=== PATIENT | male | born 1990 | race Caucasian/White ===

== ENCOUNTER 2021-09-19 05:54 | Emergency (ER) | payer MEDICARE, MEDICAID, SELFPAY ==
--- NOTE | ~2021-09-19 | XR_ITS ---
EXAMINATION: XR KNEE RT 3V XR TIBIA FIBULA RT 2V XR ANKLE RT 2V CLINICAL INFORMATION: Pain COMPARISON: None. TECHNIQUE: AP, bilateral oblique lateral views of the right knee AP and lateral views of the right tib-fib AP, oblique and lateral views of the right ankle XR/XR tibia fibula RT 2V FINDINGS/IMPRESSION: Right knee: No acute fracture or dislocation. Joint spaces and articular surfaces are maintained. Joint effusion. Soft tissues unremarkable. Right tib-fib: No fractures. Soft tissues unremarkable. No radiopaque foreign body. Right ankle: No acute fracture or dislocation. Ankle mortise is congruent. Talar dome intact. No joint effusion. Soft tissues unremarkable.
--- NOTE | ~2021-09-19 | XR_ITS ---
EXAMINATION: XR KNEE RT 3V XR TIBIA FIBULA RT 2V XR ANKLE RT 2V CLINICAL INFORMATION: Pain COMPARISON: None. TECHNIQUE: AP, bilateral oblique lateral views of the right knee AP and lateral views of the right tib-fib AP, oblique and lateral views of the right ankle XR/XR knee RT 3V FINDINGS/IMPRESSION: Right knee: No acute fracture or dislocation. Joint spaces and articular surfaces are maintained. Joint effusion. Soft tissues unremarkable. Right tib-fib: No fractures. Soft tissues unremarkable. No radiopaque foreign body. Right ankle: No acute fracture or dislocation. Ankle mortise is congruent. Talar dome intact. No joint effusion. Soft tissues unremarkable.
--- NOTE | ~2021-09-19 | XR_ITS ---
EXAMINATION: XR KNEE RT 3V XR TIBIA FIBULA RT 2V XR ANKLE RT 2V CLINICAL INFORMATION: Pain COMPARISON: None. TECHNIQUE: AP, bilateral oblique lateral views of the right knee AP and lateral views of the right tib-fib AP, oblique and lateral views of the right ankle XR/XR ankle RT 2V FINDINGS/IMPRESSION: Right knee: No acute fracture or dislocation. Joint spaces and articular surfaces are maintained. Joint effusion. Soft tissues unremarkable. Right tib-fib: No fractures. Soft tissues unremarkable. No radiopaque foreign body. Right ankle: No acute fracture or dislocation. Ankle mortise is congruent. Talar dome intact. No joint effusion. Soft tissues unremarkable.
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
[2021-09-19 06:08] VITALS: BP 142/71; PULSE 53; RESP 16; TEMP 36.1; O2SAT 96; BMI 14.6
[2021-09-19 06:11] VITALS: BP 148/98; PULSE 57; O2SAT 98
== END 2021-09-19 07:18 | disposition home or self-care (01) ==
PROVIDERS: Emergency Provider Emergency Medicine
DX: M79.661 Pain in right lower leg (principal); M25.571 Pain in right ankle and joints of right foot
CPT/HCPCS: 73562; 73590; 73600; 99283

== ENCOUNTER 2022-04-08 22:29 | Emergency (ER) | payer MEDICARE, MEDICAID, SELFPAY ==
--- NOTE | ~2022-04-08 | US_ITS ---
EXAMINATION: US SCROTUM, LIMITED CLINICAL INFORMATION: Right testicular pain. COMPARISON: None TECHNIQUE: A limited sonogram of the scrotum was performed assessing santiago-scale appearance and color Doppler flow. Spectral Doppler analysis of the arterial and venous flow were performed in the testes bilaterally. FINDINGS: Initial images demonstrate lack of blood flow within the right testicle, but normal flow within the left testicle. Per report, the ER physician manually detorsed the right testicle. Subsequent images show normal arterial and venous waveforms within the right testicle. Small epididymal cyst present on the right. US/US scrotum IMPRESSION: Successful reduction in the right testicular torsion. Most recent images demonstrate blood flow within both testicles.
--- NOTE | ~2022-04-08 | US_ITS ---
EXAMINATION: US SCROTUM, LIMITED CLINICAL INFORMATION: Right testicular pain. COMPARISON: None TECHNIQUE: A limited sonogram of the scrotum was performed assessing santiago-scale appearance and color Doppler flow. Spectral Doppler analysis of the arterial and venous flow were performed in the testes bilaterally. FINDINGS: Initial images demonstrate lack of blood flow within the right testicle, but normal flow within the left testicle. Per report, the ER physician manually detorsed the right testicle. Subsequent images show normal arterial and venous waveforms within the right testicle. Small epididymal cyst present on the right. US/US scrotum doppler IMPRESSION: Successful reduction in the right testicular torsion. Most recent images demonstrate blood flow within both testicles.
[2022-04-08 22:38] VITALS: BP 160/100; PULSE 58; O2SAT 100; BMI 38.6
[2022-04-08 22:45] VITALS: BP 148/88; PULSE 78; RESP 28; TEMP 37; O2SAT 100
--- NOTE | 2022-04-08 22:48 | PC.NURSE ---
[facility]'s Transfer Line called at 2229 per ,awaiting a call back. At 2238 accepted patient to [facility]. Ja called at 2245 for a stat ALS transfer per ,ETA 15 mins. Nurse to Nurse for report
[2022-04-08] MEDS: 0.9 % Sodium Chloride 1,000 ML 999 ML IV (22:53)
[2022-04-08] MEDS: ondansetron HCL 4 MG/2 ML VIAL IVPUSH (22:53)
[2022-04-08] MEDS: Morphine Sulfate 4 MG/ML CARTRIDGE IVPUSH (22:53)
[2022-04-08 22:59] LABS: Basophils Percent Auto 0.5 % (0-2); Eosinophils Absolute Auto 0.1 X10*3/uL (0.0-0.4); Eosinophils Percent Auto 1.4 % (0-4); Hematocrit 39.5 % (42.0-52.0); Hemoglobin 13.7 g/dl (14.0-18.0); Imm Gran Abs Auto 0.01 X10*3/uL (0.00-0.03); Imm Gran Pct Auto 0.1 % (0.0-0.4); Lymphocytes Absolute Auto 3.2 X10*3/uL (1.2-4.9); Lymphocytes Percent Auto 43.6 % (20-40); MANUAL DIFF FLAG NO; Mean Corpuscular HGB Conc 34.7 g/dl (31.0-36.0); Mean Corpuscular Hemoglobin 30.8 pg (27.0-33.0); Mean Corpuscular Volume 88.8 fL (80.0-98.0); Mean Platelet Volume 10.4 fL (9.4-12.4); Monocytes Absolute Auto 0.6 X10*3/uL (0.1-1.2); Monocytes Percent Auto 7.6 % (2-11); Neutrophils Absolute Auto 3.5 x10*3/uL (2.0-8.3); Neutrophils Percent Auto 46.8 % (45-73); Platelet Count 191 X10*3/uL (160-400); Red Blood Count 4.45 X10*6/uL (4.60-5.80); Red Cell Distribution Width 12.1 % (11.0-16.0); White Blood Count 7.4 X10*3/uL (4.8-10.8)
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
[2022-04-08 23:13] LABS: Anion Gap 17 (12-20); Blood Urea Nitrogen 11 mg/dL (9-16); Calcium 9.3 mg/dL (8.4-10.2); Carbon Dioxide 23 mmol/L (22-29); Chloride 104 mmol/L (96-108); Creatinine Clr Calc Pharmacy 135.6; Estimated Glomerular Filt Rate > 60; Glucose Random 144 mg/dL (60-115); Potassium 3.9 mmol/L (3.3-5.1); Sodium 140 mmol/L (135-145)
== END 2022-04-08 23:27 | disposition left against medical advice (07) ==
LOC: HO.ED 23:23
PROVIDERS: Emergency Provider Internal Medicine
DX: N50.811 Right testicular pain (principal); R10.30 Lower abdominal pain, unspecified; N50.812 Left testicular pain; R10.2 Pelvic and perineal pain; Z79.899 Other long term (current) drug therapy
CPT/HCPCS: 36415; 76870; 80048; 85025; 93975; 96374; 96375; 99283; 99284; J2270; J2405

== ENCOUNTER 2022-04-14 20:00 | Emergency (ER) | payer MEDICARE, MEDICAID, SELFPAY ==
[2022-04-14 21:11] VITALS: BP 117/72; PULSE 76; RESP 16; TEMP 37.1; O2SAT 98; BMI 27.4
== END 2022-04-14 23:23 | disposition left against medical advice (07) ==
PROVIDERS: Emergency Provider Emergency Medicine
DX: M79.10 Myalgia, unspecified site (principal); S09.90XA Unspecified injury of head, initial encounter; W13.0XXA Fall from, out of or through balcony, initial encounter; Y93.89 Activity, other specified; Y92.017 Garden or yard in single-family (private) house as the place of occurrence of the external cause; Y99.9 Unspecified external cause status
CPT/HCPCS: 99281

== ENCOUNTER 2022-05-03 20:20 | Emergency (ER) | payer MEDICARE, MEDICAID, SELFPAY ==
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
[2022-05-03 21:02] VITALS: BP 120/62; PULSE 79; RESP 18; TEMP 36.8; O2SAT 97; BMI 27.4
== END 2022-05-04 00:13 | disposition left against medical advice (07) ==
PROVIDERS: Emergency Provider Emergency Medicine
DX: S89.92XA Unspecified injury of left lower leg, initial encounter (principal); S79.912A Unspecified injury of left hip, initial encounter; S49.92XA Unspecified injury of left shoulder and upper arm, initial encounter; S69.92XA Unspecified injury of left wrist, hand and finger(s), initial encounter; S59.902A Unspecified injury of left elbow, initial encounter; V13.4XXA Pedal cycle driver injured in collision with car, pick-up truck or van in traffic accident, initial encounter; Y93.55 Activity, bike riding; Y92.414 Local residential or business street as the place of occurrence of the external cause; Y99.9 Unspecified external cause status
CPT/HCPCS: 73030; 73070; 73100; 73502; 73560; 99282; 99283

== ENCOUNTER 2022-05-09 15:27 | Emergency (ER) | payer MEDICARE, MEDICAID, SELFPAY ==
[2022-05-09 15:50] VITALS: BP 151/77; PULSE 67; RESP 18; TEMP 36.9; O2SAT 98; BMI 25.8
--- NOTE | 2022-05-09 16:04 | ED_ITS ---
HPI - General Adult General Chief complaint: General Medical Stated complaint: Infection Time Seen by Provider: 05/09/22 17:43 Related Data Previous Rx's Medication Instructions Recorded naproxen 500 mg tablet (Naprosyn) 500 mg PO BID #20 tabs 09/19/21 cephalexin 500 mg capsule 500 mg PO QID 10 days #40 caps 05/09/22 Allergies Allergy/AdvReac Type Severity Reaction Status Date / Time No Known Allergies Allergy Verified 05/10/22 06:57 [facility] Family History Family History (System 05/10/22 @ 06:57 by Camille Grey) Mother Depression Anxiety Asthma Maternal Grandmother Ovarian cancer Social History Social History (System 05/10/22 @ 06:57 by Camille Grey) Advance Directives: No Advance Directives Information Provided: No Physical Exam ED Vital Signs: Vital Signs - 24 hr 05/09/22 15:50 Temperature 98.4 F Pulse Rate 67 Respiratory Rate 18 Blood Pressure 151/77 H Pulse Oximetry 98 Oxygen Delivery Method Room Air BMI result Body Mass Index 25.8 Course Reevaluation(s) Reevaluation #1: Recently released from longterm find out he has redness and discharge from his penis patient is not diabetic never had yeast infection of the penis, but noticed discharge unable to assess the patient for STD patient is a poor historian. Time: 16:05 Medications Administered Discontinued Medications Generic Name Dose Route Start Last Admin Trade Name Freq PRN Reason Stop Dose Admin Cephalexin HCl 500 mg 05/09/22 18:07 05/09/22 19:06 Cephalexin 500 Mg Capsule PO 05/09/22 18:08 500 mg ONCE ONE Administration Medical Decision Making Lab Data Labs: Lab Results 05/09/22 05/09/22 05/09/22 Range/Units 16:27 16:27 19:05 POC Glucose 93 (60-115) mg/dL Urine Color Yellow Urine Appearance Clear Urine pH 6.5 (5.0-9.0) Ur Specific [place] 1.025 (1.005-1.025) Urine Protein Negative (Neg-Trace) mg/dL Urine Glucose (UA) Negative (Negative) mg/dL Urine Ketones Negative (Negative) mg/dL Urine Blood Negative (Negative) Urine Nitrite Negative (Negative) Ur Leukocyte Esterase Negative (Negative) Chlam trachomat DNA PCR NOT DETECTED (Not Detect.) N.gonorrhoeae DNA (PCR) NOT DETECTED (Not Detect.) Discharge Plan Discharge Clinical Impression: Acute balanitis due to infection Patient Disposition: Home, Self-Care Instructions: Balanitis (ED) Additional Instructions: Keep the area clean as advised Antibiotic as prescribed Follow with PCP if not better Prescriptions: New cephalexin 500 mg capsule 500 mg PO QID 10 Days Qty: 40 0RF No Action naproxen [Naprosyn] 500 mg tablet 500 mg PO BID Qty: 20 0RF Interventions: ED Discharge Assessment Last Done: 05/09/22 19:16 Discharge Date/Time: 05/09/22 19:17 Print Language: Telugu
[2022-05-09 16:54] LABS: Appearance Urine Clear; Color Urine Yellow; Glucose Urine UA Negative (Negative); Leukocyte Esterase Urine Negative (Negative); Nitrite Urine Negative (Negative); PH 6.5 (5.0-9.0); Specific Gravity - Urine 1.025 (1.005-1.025); Urine Blood Negative (Negative); Urine Ketones Negative (Negative); Urine Protein Negative (Neg-Trace)
[2022-05-09 18:34] LABS: CT PCR NOT DETECTED (Not Detect.); NG PCR NOT DETECTED (Not Detect.)
--- NOTE | 2022-05-09 18:43 | ED_ITS ---
HPI - Male Genitourinary General Chief complaint: General Medical Stated complaint: Infection Time Seen by Provider: 05/09/22 17:43 Source: patient Mode of arrival: ambulatory Limitations: no limitations History of Present Illness HPI Narrative: Patient is 31 years old complaining of inflammation at the tip of the penis for last few days no penile discharge no STD exposure no urinary symptom patient on diabetic and had infection the past patient is not circumcised Related Data Previous Rx's Medication Instructions Recorded cephalexin 500 mg capsule 500 mg PO QID 10 days #40 caps 05/09/22 Allergies Allergy/AdvReac Type Severity Reaction Status Date / Time No Known Allergies Allergy Verified 05/03/22 21:01 Review of Systems Review of Systems: Yes all other systems are reviewed and are negative [facility] Family History Family History Mother Depression Anxiety Asthma Maternal Grandmother Ovarian cancer Social History Social History Advance Directives: No Advance Directives Information Provided: No Physical Exam Vital Signs: Vital Signs: Last Vital Signs Temp 98.4 F 05/09/22 15:50 Pulse 67 05/09/22 15:50 Resp 18 05/09/22 15:50 BP 151/77 H 05/09/22 15:50 Pulse Ox 98 05/09/22 15:50 O2 Del Method 05/09/22 15:50 BMI result Body Mass Index 25.8 Appearance: Alert. Oriented X3. No acute distress. CVS: Normal heart rate and rhythm. Pulses normal. no wheezing/rales/rhonchi Abdomen: Soft and nontender. Bowel sounds are present, Male : Normal scrotum normal testicles inflamed glans no discharge not circumcised Skin: Skin warm and dry. Normal skin color. Normal skin turgor. Extremities: No lower extremity edema. Neuro: Oriented X 3. MDM - Male Genitourinary Lab Data Attestation: I reviewed the patient's lab results. Labs: Lab Results 05/09/22 05/09/22 Range/Units 16:27 16:27 Urine Color Yellow Urine Appearance Clear Urine pH 6.5 (5.0-9.0) Ur Specific [place] 1.025 (1.005-1.025) Urine Protein Negative (Neg-Trace) mg/dL Urine Glucose (UA) Negative (Negative) mg/dL Urine Ketones Negative (Negative) mg/dL Urine Blood Negative (Negative) Urine Nitrite Negative (Negative) Ur Leukocyte Esterase Negative (Negative) Chlam trachomat DNA PCR NOT DETECTED (Not Detect.) N.gonorrhoeae DNA (PCR) NOT DETECTED (Not Detect.) Discharge Plan Discharge Clinical Impression: Acute balanitis due to infection Patient Disposition: Home, Self-Care Instructions: Balanitis (ED) Additional Instructions: Keep the area clean as advised Antibiotic as prescribed Follow with PCP if not better Prescriptions: New cephalexin 500 mg capsule 500 mg PO QID 10 Days Qty: 40 0RF Print Language: Algerian
[2022-05-09] MEDS: cephALEXin 500 MG CAPSULE PO (19:06)
[2022-05-09 20:52] LABS: Glucose, Whole Blood 93 mg/dL (60-115)
== END 2022-05-09 19:17 | disposition home or self-care (01) ==
PROVIDERS: Emergency Medicine; Emergency Provider Internal Medicine
DX: N48.1 Balanitis (principal)
CPT/HCPCS: 81003; 82947; 87491; 87591; 99282; 99283

== ENCOUNTER 2022-12-06 14:22 | Emergency (ER) | payer OTHER, SELFPAY ==
--- NOTE | ~2022-12-06 | XR_ITS ---
EXAMINATION: XR SHOULDER, LEFT CLINICAL INFORMATION: Left shoulder pain. COMPARISON: 05/03/2022 TECHNIQUE: AP external rotation, Grashey, scapular Y, and axillary views of the left shoulder. FINDINGS: Glenohumeral and acromioclavicular alignment is anatomic with normal joint space. No displaced fracture or dislocation. No abnormal soft tissue calcifications. XR/XR shoulder LT min 2V IMPRESSION: No acute abnormality.
[2022-12-06 14:25] VITALS: BP 118/78; PULSE 54; O2SAT 98
[2022-12-06 14:34] VITALS: BP 115/72; PULSE 54; RESP 16; TEMP 36.7; O2SAT 96; BMI 28.1
[2022-12-06] MEDS: Bacitracin Oint 0.9 GM PACKET 1 APPL TOPICAL (15:22)
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
== END 2022-12-06 16:09 | disposition home or self-care (01) ==
PROVIDERS: Emergency Provider Student in an Organized Health Care Education/Training Program
DX: S40.212A Abrasion of left shoulder, initial encounter (principal); M25.512 Pain in left shoulder; M54.50 Low back pain, unspecified; F17.210 Nicotine dependence, cigarettes, uncomplicated; V13.4XXA Pedal cycle driver injured in collision with car, pick-up truck or van in traffic accident, initial encounter; Y93.9 Activity, unspecified; Y92.410 Unspecified street and highway as the place of occurrence of the external cause; Y99.9 Unspecified external cause status; Z71.6 Tobacco abuse counseling
CPT/HCPCS: 73030; 99282; 99283

== ENCOUNTER 2023-06-15 18:16 | Emergency (ER) | payer MEDICARE, MEDICAID, SELFPAY ==
--- NOTE | ~2023-06-15 | CT_ITS ---
CT HEAD WITHOUT IV CONTRAST CT CERVICAL SPINE WITHOUT IV CONTRAST CT MAXILLOFACIAL WITHOUT IV CONTRAST INDICATION: Injury COMPARISON: 02/27/2019 TECHNIQUE: Multidetector CT acquisitions of the head, maxillofacial region, and cervical spine were obtained without IV contrast. Multiplanar reformats were acquired and utilized for image interpretation. DLP: 572, 472, 373 mGy-cm FINDINGS: HEAD: There is no intracranial hemorrhage or extra-axial fluid collection. The ventricles are unremarkable without hydrocephalus. No midline shift or mass effect. Castro to white matter differentiation is diffusely maintained without evidence of an evolved acute territorial infarct. The basilar cisterns are preserved. No soft tissue or osseous abnormality. The mastoid air cells and paranasal sinuses are well-aerated. MAXILLOFACIAL: The mandible, maxilla, pterygoid plates, nasal bones, zygomatic arches, paranasal sinus smyth, and bony orbits are intact. No acute osseous abnormality within the maxillofacial region. The paranasal sinuses and mastoid air cells remain well-aerated. The globes and extra-ocular musculature is intact. No significant soft tissue findings. CERVICAL SPINE: There is anatomic alignment of the vertebral bodies and posterior elements. There is no acute fracture and there is no acute subluxation. The craniocervical and atlantoaxial articulations are normal. There is no prevertebral soft tissue swelling. No significant soft tissue abnormality within the neck. The visualized lung apices are clear. CT/CT head/brain wo IV con IMPRESSION: 1. No acute intracranial abnormality. 2. No acute osseous abnormality within the cervical spine. 3. No acute osseous abnormality within the maxillofacial region.
--- NOTE | ~2023-06-15 | CT_ITS ---
CT HEAD WITHOUT IV CONTRAST CT CERVICAL SPINE WITHOUT IV CONTRAST CT MAXILLOFACIAL WITHOUT IV CONTRAST INDICATION: Injury COMPARISON: 02/27/2019 TECHNIQUE: Multidetector CT acquisitions of the head, maxillofacial region, and cervical spine were obtained without IV contrast. Multiplanar reformats were acquired and utilized for image interpretation. DLP: 572, 472, 373 mGy-cm FINDINGS: HEAD: There is no intracranial hemorrhage or extra-axial fluid collection. The ventricles are unremarkable without hydrocephalus. No midline shift or mass effect. Castro to white matter differentiation is diffusely maintained without evidence of an evolved acute territorial infarct. The basilar cisterns are preserved. No soft tissue or osseous abnormality. The mastoid air cells and paranasal sinuses are well-aerated. MAXILLOFACIAL: The mandible, maxilla, pterygoid plates, nasal bones, zygomatic arches, paranasal sinus smyth, and bony orbits are intact. No acute osseous abnormality within the maxillofacial region. The paranasal sinuses and mastoid air cells remain well-aerated. The globes and extra-ocular musculature is intact. No significant soft tissue findings. CERVICAL SPINE: There is anatomic alignment of the vertebral bodies and posterior elements. There is no acute fracture and there is no acute subluxation. The craniocervical and atlantoaxial articulations are normal. There is no prevertebral soft tissue swelling. No significant soft tissue abnormality within the neck. The visualized lung apices are clear. CT/CT facial bones wo IV con IMPRESSION: 1. No acute intracranial abnormality. 2. No acute osseous abnormality within the cervical spine. 3. No acute osseous abnormality within the maxillofacial region.
--- NOTE | ~2023-06-15 | CT_ITS ---
CT HEAD WITHOUT IV CONTRAST CT CERVICAL SPINE WITHOUT IV CONTRAST CT MAXILLOFACIAL WITHOUT IV CONTRAST INDICATION: Injury COMPARISON: 02/27/2019 TECHNIQUE: Multidetector CT acquisitions of the head, maxillofacial region, and cervical spine were obtained without IV contrast. Multiplanar reformats were acquired and utilized for image interpretation. DLP: 572, 472, 373 mGy-cm FINDINGS: HEAD: There is no intracranial hemorrhage or extra-axial fluid collection. The ventricles are unremarkable without hydrocephalus. No midline shift or mass effect. Castro to white matter differentiation is diffusely maintained without evidence of an evolved acute territorial infarct. The basilar cisterns are preserved. No soft tissue or osseous abnormality. The mastoid air cells and paranasal sinuses are well-aerated. MAXILLOFACIAL: The mandible, maxilla, pterygoid plates, nasal bones, zygomatic arches, paranasal sinus smyth, and bony orbits are intact. No acute osseous abnormality within the maxillofacial region. The paranasal sinuses and mastoid air cells remain well-aerated. The globes and extra-ocular musculature is intact. No significant soft tissue findings. CERVICAL SPINE: There is anatomic alignment of the vertebral bodies and posterior elements. There is no acute fracture and there is no acute subluxation. The craniocervical and atlantoaxial articulations are normal. There is no prevertebral soft tissue swelling. No significant soft tissue abnormality within the neck. The visualized lung apices are clear. CT/CT cervical spine wo IV con IMPRESSION: 1. No acute intracranial abnormality. 2. No acute osseous abnormality within the cervical spine. 3. No acute osseous abnormality within the maxillofacial region.
[2023-06-15 18:18] VITALS: BP 145/87; PULSE 88; RESP 18; TEMP 36.8; O2SAT 97; BMI 24.7
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
--- NOTE | 2023-06-15 18:29 | PC.NURSE ---
security made aware of pt and situation
[2023-06-15 20:10] VITALS: BP 138/88; PULSE 84; RESP 18; TEMP 36.7; O2SAT 98
[2023-06-15] MEDS: Ibuprofen 800 MG TABLET PO (22:05)
== END 2023-06-15 22:10 | disposition home or self-care (01) ==
PROVIDERS: Emergency Provider Emergency Medicine
DX: S01.312A Laceration without foreign body of left ear, initial encounter (principal); Y00.XXXA Assault by blunt object, initial encounter; Y93.9 Activity, unspecified; Y92.9 Unspecified place or not applicable; Y99.9 Unspecified external cause status
CPT/HCPCS: 12011; 70450; 70486; 72125; 99283; 99284

== ENCOUNTER 2024-05-31 00:17 | Emergency (ER) | payer MEDICARE, MEDICAID, SELFPAY ==
--- NOTE | ~2024-05-31 | XR_ITS ---
EXAMINATION: XR CHEST CLINICAL INFORMATION: pain after smoking COMPARISON: February 27, 2019. TECHNIQUE: Frontal view of the chest was obtained. FINDINGS: No significant abnormality is noted involving the heart, lungs, mediastinum, bony thorax or soft tissues. XR/XR chest 1V IMPRESSION: Unremarkable examination. Electronically signed by: Milan Gleason MD 05/31/2024 01:31 AM [facility]
[2024-05-31 00:29] VITALS: BP 140/90; PULSE 77; RESP 18; TEMP 36.8; O2SAT 99
--- NOTE | 2024-05-31 00:30 | ECG_ITS ---
Test Reason : OVERDOSE Blood Pressure : / mmHG Vent. Rate : 068 BPM Atrial Rate : 068 BPM P-R Int : 176 ms QRS Dur : 086 ms QT Int : 374 ms P-R-T Axes : 064 028 032 degrees QTc Int : 397 ms Normal sinus rhythm Normal ECG When compared to the previous EKG of No significant changes seen Referred By: Talib Lima Electronically Signed By:Tank Cordero
[2024-05-31 00:34] VITALS: BP 142/80; PULSE 90; O2SAT 97; BMI 31.2
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
[2024-05-31 00:47] LABS: Basophils Percent Auto 0.5 % (0-2); Eosinophils Absolute Auto 0.1 X10*3/uL (0.0-0.4); Eosinophils Percent Auto 0.8 % (0-4); Hematocrit 39.1 % (42.0-52.0); Hemoglobin 14.1 g/dl (14.0-18.0); Imm Gran Abs Auto 0.01 X10*3/uL (0.00-0.03); Imm Gran Pct Auto 0.2 % (0.0-0.4); Lymphocytes Absolute Auto 2.2 X10*3/uL (1.2-4.9); Lymphocytes Percent Auto 37.5 % (20-40); MANUAL DIFF FLAG NO; Mean Corpuscular HGB Conc 36.1 g/dl (31.0-36.0); Mean Corpuscular Hemoglobin 31.7 pg (27.0-33.0); Mean Corpuscular Volume 87.9 fL (80.0-98.0); Mean Platelet Volume 10.1 fL (9.4-12.4); Monocytes Absolute Auto 0.4 X10*3/uL (0.1-1.2); Monocytes Percent Auto 7.1 % (2-11); Neutrophils Absolute Auto 3.2 x10*3/uL (2.0-8.3); Neutrophils Percent Auto 53.9 % (45-73); Platelet Count 174 X10*3/uL (160-400); Red Blood Count 4.45 X10*6/uL (4.60-5.80); Red Cell Distribution Width 12.1 % (11.0-16.0); White Blood Count 5.9 X10*3/uL (4.8-10.8)
[2024-05-31 01:03] LABS: Alanine Aminotransferase 30 U/L (0-40); Albumin Level 4.5 g/dL (3.5-5.0); Alkaline Phosphatase 45 U/L (39-117); Anion Gap 15 (12-20); Aspartate Amino Transferase 28 U/L (5-37); Bilirubin Total 0.4 mg/dL (0.0-1.0); Blood Urea Nitrogen 14 mg/dL (9-16); Calcium 9.4 mg/dL (8.4-10.2); Carbon Dioxide 25 mmol/L (22-29); Chloride 107 mmol/L (96-108); Creatinine Clr Calc Pharmacy 106.6; Estimated Glomerular Filt Rate > 60; Ethanol < 10 mg/dL; Glucose Random 102 mg/dL (60-115); Lipase 21 U/L (8-78); Potassium 3.8 mmol/L (3.3-5.1); Sodium 143 mmol/L (135-145); Total Protein 6.9 g/dL (6.5-8.0)
[2024-05-31 01:50] LABS: Appearance Urine Clear; Color Urine Yellow; Glucose Urine UA Negative (Negative); Leukocyte Esterase Urine Negative (Negative); Nitrite Urine Negative (Negative); Specific Gravity - Urine 1.015 (1.005-1.025); Urine Blood Negative (Negative); Urine Ketones Negative (Negative); Urine Protein Negative (Neg-Trace)
[2024-05-31 01:53] LABS: Bacteria Urine None Seen (None Seen); Hyaline Casts Urine 0-2 /LPF (0-2); RBC Urine 0-2 /HPF (0-2); Squamous Epithelial Cell Urine 0-2 /HPF (0-2); WBC Urine 0-5 /HPF (0-5)
[2024-05-31 02:06] LABS: Amphetamine Screen Urine Not Detected (Not Detect); Barbiturates, Urine Not Detected (Not Detect); Benzodiazepines Screen Urine Not Detected (Not Detect); Buprenorphine Scr Not Detected (Not Detect); Cannabinoid Screen Urine POSITIVE (Not Detect); Cocaine Screen Urine Not Detected (Not Detect); Fentanyl, urine Not Detected (Not Detect); Methadone Screen, Urine Not Detected (Not Detect); Opiate Screen Urine Not Detected (Not Detect); Oxycodone Screen Urine Not Detected (Not Detect); Phencyclidine Screen Urine POSITIVE (Not Detect)
[2024-05-31 02:12] LABS: Troponin-I High Sensitivity < 2.7 ng/L (<3.5-35.0)
[2024-05-31] MEDS: Naloxone HCl Nasal TAKE HOME 4 MG SPRAY 8 MG NOSTRILALT (02:24)
[2024-05-31 02:33] VITALS: BP 125/73; PULSE 77; RESP 18; TEMP 36.8; O2SAT 99
== END 2024-05-31 02:34 | disposition home or self-care (01) ==
PROVIDERS: Physician Assistant; Emergency Provider Emergency Medicine
DX: T40.991A Poisoning by other psychodysleptics [hallucinogens], accidental (unintentional), initial encounter (principal); R40.4 Transient alteration of awareness; R07.81 Pleurodynia; F33.1 Major depressive disorder, recurrent, moderate; Y92.9 Unspecified place or not applicable; F17.210 Nicotine dependence, cigarettes, uncomplicated; Z51.81 Encounter for therapeutic drug level monitoring; Z79.899 Other long term (current) drug therapy
CPT/HCPCS: 36415; 71045; 80053; 80307; 81001; 83690; 84484; 85025; 93005; 99285

== ENCOUNTER → 2024-05-31 00:30 | Outpatient (BNV) | payer MEDICARE, MEDICAID, SELFPAY | PROVIDERS: Emergency Provider Emergency Medicine; Visit Provider Internal Medicine Cardiovascular Disease | DX: F19.10 Other psychoactive substance abuse, uncomplicated (principal) | CPT/HCPCS: 93010 ==

== ENCOUNTER 2024-07-19 04:45 | Emergency (ER) | payer MEDICARE, MEDICAID, SELFPAY ==
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
--- NOTE | ~2024-07-19 | XR_ITS ---
CLINICAL HISTORY: chest wall pain 2 view chest x-ray Comparison: CR/SR - XR CHEST 1V - 05/31/24 00:38 EST Findings: Lateral view limited as extremities overlie the field of view. As such, clear lungs. No consolidation, pleural effusion or pneumothorax. Normal heart size and mediastinal contour. Appear to be old fractures of the right 5th and 6th ribs. No clearly acute fracture evident. Small amount of debris/artifact overlies the right lateral abdominal wall. Nonspecific upper abdominal bowel gas pattern. Impression: No acute cardiopulmonary process. This document has been electronically signed by: Scott Mcdonough MD on 07/19/2024 10:27:24
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
[2024-07-19 04:48] VITALS: BP 120/57; PULSE 65; RESP 14; TEMP 36.6; O2SAT 97; BMI 21.0
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
--- OUTSIDE RECORDS SUMMARY | 2024-07-19 09:03 | XMS_ITS | Clinical Summary ---
Author Organization [facility] ity Address [address] [place] [address] Care Team Providers Care Transportation Program Director Name Role Phone Unavailable Primary Care Provider Unavailabl e Social History Tobacco Use Types Packs/Day Years Used Date Smoking Tobacco: Never Assessed Sex and Gender Information Value Date Recorded Sex Assigned at Not on file Gender Identity Not on file Sexual Orientation Not on file Plan of Treatment Health Maintenance Due Date Last Done Comments DTaP,Tdap,and Td Vaccines (1 - Tdap) 2010 Hepatitis B Vaccines (1 of 3 - 19+ 3-dose series) 2010 COVID-19 Vaccine (2023-2 5 season) 2024 Influenza Vaccine (#1) 2024 HIB Vaccines Aged Out No longer eligi ble based on patient's age to complete this topic HPV Vaccines Aged Out No longer eligi ble based on patient's age to complete this topic Hepatitis A Vaccines Aged Out No long er eligible based on patient's age to complete this topic IPV Vaccines Aged Out No longer eligi ble based on patient's age to complete this topic MMR Vaccines Aged Out No longer eligi ble based on patient's age to complete this topic Meningococcal ACWY Vaccine Aged Out N o longer eligible based on patient's age to complete this topic Pneumococcal Vaccine: Pediat rics (0 to 5 Years) and At-Risk Patients (6 to 64 Years) Aged Out No longer eligible b ased on patient's age to complete this topic RSV Immunization Patients Un petty 20 months Aged Out No longer eligible b ased on patient's age to complete this topic Varicella Vaccines Aged Out No longer eligible based on patient's age to complete this topic
--- OUTSIDE RECORDS SUMMARY | 2024-07-19 09:03 | XMS_ITS | Clinical Summary ---
Author Organization [employer] Address [address] [place] [address] Care Team Providers Care Central Office Mechanic Name Role Phone Unavailable Primary Care Provider Unavailabl e Social History Tobacco Use Types Packs/Day Years Used Date Smoking Tobacco: Never Assessed Sex and Gender Information Value Date Recorded Sex Assigned at Male 02/04/2023 9:57 AM EDT Legal Sex Male 2:55 PM EDT Gender Identity Male 02/04/2023 9:57 AM EDT Sexual Orientation Straight 02/04/2023 9: 57 AM EDT Plan of Treatment Health Maintenance Due Date Last Done Comments Depression Screening 1991 HIV Screening 1991 SDOH Screening 1991 Alcohol/Substance Use Screening 2003 Tobacco Screening 2003 Family Planning (PISQ) 2006 Hepatitis C Screening 2009 DTaP/Tdap/Td Vaccines (1 - Tdap) 2010 Hepatitis B Vaccines (1 of 3 - 19+ 3-dose series) 2010 COVID-19 Vaccine ( - 2023-2 5 season) 2024 Influenza Vaccine (#1) 2024 Zoster Vaccines (1 of 2) 2041 RSV Patients and Pa tients Aged 60 years or older (1 - 1-dose 75+ series) 2066 HIB Vaccines Aged Out No longer eligi [...] patient's age to complete this topic Meningococcal Vaccine Aged Out No ava parveen eligible based on patient's age to complete this topic Pneumococcal Vaccine: Pediat rics (0 to 5 Years) and At-Risk Patients (6 to 64 Years) Aged Out No longer eligible b ased on patient's age to complete this topic RSV under 20 months Aged Out No longe r eligible based on patient's age to complete this topic Rotavirus Vaccines Aged Out No longer eligible based on patient's age to complete this topic Insurance [facility] STANDARD [facility] MEDICARE
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
[2024-07-19 10:54] VITALS: BP 113/73; PULSE 53; RESP 18; TEMP 36.7; O2SAT 96
[2024-07-19 12:16] LABS: Appearance Urine Clear; Color Urine Yellow; Glucose Urine UA Negative (Negative); Leukocyte Esterase Urine Negative (Negative); Nitrite Urine Negative (Negative); PH 6.5 (5.0-9.0); Specific Gravity - Urine 1.025 (1.005-1.025); Urine Blood Negative (Negative); Urine Ketones Negative (Negative); Urine Protein Negative (Neg-Trace)
[2024-07-19 12:23] LABS: Amphetamine Screen Urine Not Detected (Not Detect); Barbiturates, Urine Not Detected (Not Detect); Benzodiazepines Screen Urine Not Detected (Not Detect); Buprenorphine Scr Not Detected (Not Detect); Cannabinoid Screen Urine Not Detected (Not Detect); Cocaine Screen Urine Not Detected (Not Detect); Fentanyl, urine Not Detected (Not Detect); Methadone Screen, Urine Not Detected (Not Detect); Opiate Screen Urine Not Detected (Not Detect); Oxycodone Screen Urine Not Detected (Not Detect); Phencyclidine Screen Urine POSITIVE (Not Detect)
[2024-07-19 14:45] VITALS: BP 101/55; RESP 16; O2SAT 98
[2024-07-19 15:24] VITALS: BP 101/55; PULSE 68; RESP 16; TEMP -17.7; TEMP 0; O2SAT 98
== END 2024-07-19 15:25 | disposition home or self-care (01) ==
PROVIDERS: Emergency Provider Emergency Medicine
DX: S40.011A Contusion of right shoulder, initial encounter (principal); M54.2 Cervicalgia; R07.89 Other chest pain; R51.9 Headache, unspecified; M25.511 Pain in right shoulder; F17.210 Nicotine dependence, cigarettes, uncomplicated; F12.10 Cannabis abuse, uncomplicated; V03.90XA Pedestrian on foot injured in collision with car, pick-up truck or van, unspecified whether traffic or nontraffic accident, initial encounter; Y93.9 Activity, unspecified; Y92.488 Other paved roadways as the place of occurrence of the external cause; Y99.8 Other external cause status; Z51.81 Encounter for therapeutic drug level monitoring; Z79.899 Other long term (current) drug therapy
CPT/HCPCS: 70450; 71046; 72125; 73030; 80307; 81003; 99284

== ENCOUNTER → 2024-07-19 05:00 | Outpatient (BNV) | payer MEDICARE, MEDICAID, SELFPAY | PROVIDERS: Visit Provider Specialist | DX: M54.2 Cervicalgia (principal); R51.9 Headache, unspecified; R07.89 Other chest pain; S40.011A Contusion of right shoulder, initial encounter; V03.10XA Pedestrian on foot injured in collision with car, pick-up truck or van in traffic accident, initial encounter | CPT/HCPCS: 73030 ==

== ENCOUNTER 2024-08-04 21:43 | Emergency (ER) | payer MEDICARE, MEDICAID, SELFPAY ==
--- NOTE | ~2024-08-04 | XR_ITS ---
CLINICAL HISTORY: fall pain 4 view right knee Comparison: None Findings: No fractures or dislocations. No significant loss of joint space, osteophytes, or erosions. No joint effusion. No radiopaque foreign body. IMPRESSION: 1. No acute findings. This document has been electronically signed by: Moo Gomes MD on 08/04/2024 23:07:19
[2024-08-04 21:45] VITALS: BP 145/111; PULSE 77; RESP 17; TEMP 37; O2SAT 99; BMI 26.6
--- OUTSIDE RECORDS SUMMARY | 2024-08-05 01:43 | XMS_ITS | Clinical Summary ---
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
--- OUTSIDE RECORDS SUMMARY | 2024-08-05 01:43 | XMS_ITS | Clinical Summary ---
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
== END 2024-08-05 01:42 | disposition left against medical advice (07) ==
PROVIDERS: Emergency Provider Emergency Medicine
DX: M79.604 Pain in right leg (principal)
CPT/HCPCS: 73564; 99281

== ENCOUNTER → 2024-08-04 22:25 | Outpatient (BNV) | payer MEDICARE, MEDICAID, SELFPAY | PROVIDERS: Visit Provider Radiology Diagnostic Radiology | DX: M25.561 Pain in right knee (principal); W19.XXXA Unspecified fall, initial encounter | CPT/HCPCS: 73564 ==

== ENCOUNTER 2024-11-26 17:55 | Emergency (ER) | payer MEDICARE, MEDICAID, SELFPAY ==
[2024-11-26 18:04] VITALS: BP 134/76; PULSE 114; O2SAT 96
[2024-11-26 18:08] VITALS: BP 139/87; PULSE 96; RESP 18; TEMP 36.8; O2SAT 97
[2024-11-26 18:28] VITALS: BP 137/85; PULSE 84; RESP 18; TEMP 36.9; O2SAT 96; BMI 25.8
--- NOTE | 2024-11-26 20:35 | PC.NURSE ---
Medication to be brought down from pharmacy.
[2024-11-26] MEDS: Lidocaine HCl 1%/Epi 1:100,000 20 ML VIAL INFILTRATI (21:16)
[2024-11-26 22:12] VITALS: BP 144/93; PULSE 78; RESP 16; O2SAT 96
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
[2024-11-26 22:38] VITALS: BP 144/93; PULSE 78; RESP 16; TEMP 37.1; O2SAT 96
== END 2024-11-26 22:38 | disposition home or self-care (01) ==
PROVIDERS: Emergency Provider Emergency Medicine Emergency Medical Services
DX: S61.512A Laceration without foreign body of left wrist, initial encounter (principal); S06.0X0A Concussion without loss of consciousness, initial encounter; S00.83XA Contusion of other part of head, initial encounter; S00.03XA Contusion of scalp, initial encounter; S60.212A Contusion of left wrist, initial encounter; X58.XXXA Exposure to other specified factors, initial encounter; Y04.2XXA Assault by strike against or bumped into by another person, initial encounter; Y93.9 Activity, unspecified; Y92.89 Other specified places as the place of occurrence of the external cause; Y99.8 Other external cause status; F17.210 Nicotine dependence, cigarettes, uncomplicated
CPT/HCPCS: 12001; 99284; J2004